=== PATIENT | male | born 1935 | race Caucasian/White ===

== ENCOUNTER → 2017-10-28 06:37 | Outpatient (CLI) | payer MEDICARE, SELFPAY ==
[2017-10-28 08:49] LABS: Alanine Aminotransferase 31 U/L (12-78); Albumin Level 3.8 gm/dL (3.4-5.0); Albumin/Globulin Ratio 1.8 (1.1-1.8); Alkaline Phosphatase 68 U/L (46-116); Anion Gap 8.7 mEq/L (5-15); Aspartate Amino Transferase 15 U/L (15-37); Bilirubin,Total 0.5 mg/dL (0.2-1.0); Blood Urea Nitrogen 18 mg/dL (7-18); Calcium 8.8 mg/dL (8.5-10.1); Carbon Dioxide 32 mmol/L (21.0-32.0); Chloride 104 mmol/L (98-107); Chol/HDL Ratio 3.5 (1-3.5); Cholesterol 144 mg/dL (140-200); Creatinine,Serum 0.89 mg/dL (0.70-1.30); Estimated Glomerular Filt Rate 82 ml/min (>60); GFR (African American) 99 ML/MIN (>60); Globulin 2.1 gm/dl (1.3-3.2); Glucose 91 mg/dL (74-106); HDL Cholesterol 41 mg/dL (27-67); LDL Cholesterol 93 mg/dL (0-130); Potassium 3.7 mmoL/L (3.5-5.1); Sodium 141 mmol/L (136-145); Thyroid Stimulating Hormone 1.04 uIU/ml (0.358-3.740); Total Protein,Serum 5.9 gm/dL (6.4-8.2); Triglycerides 52 mg/dL (30-200); VLDL Cholesterol 10 mg/dL (0-40)
[2017-10-29 10:16] LABS: Microalbumin, Urine 7.7 ug/mL (Not Estab.)
== END ==
PROVIDERS: PCP Family Medicine; Visit Provider Family Medicine
DX: I10 Essential (primary) hypertension (principal); Z12.5 Encounter for screening for malignant neoplasm of prostate; E78.2 Mixed hyperlipidemia
CPT/HCPCS: 36415; 80053; 80061; 82043; 84443; G0103

== ENCOUNTER → 2018-02-03 11:25 | Outpatient (CLI) | payer MEDICARE, SELFPAY | PROVIDERS: PCP Family Medicine; Visit Provider Surgery | DX: Z01.818 Encounter for other preprocedural examination (principal); K59.00 Constipation, unspecified | CPT/HCPCS: 93005 ==

== ENCOUNTER → 2018-02-24 07:03 | Outpatient (CLI) | payer MEDICARE, SELFPAY ==
[2018-02-24 08:41] LABS: Alanine Aminotransferase 28 U/L (12-78); Albumin/Globulin Ratio 1.6 (1.1-1.8); Alkaline Phosphatase 69 U/L (46-116); Anion Gap 7.5 mEq/L (5-15); Aspartate Amino Transferase 25 U/L (15-37); Bilirubin,Total 0.6 mg/dL (0.2-1.0); Blood Urea Nitrogen 15 mg/dL (7-18); Calcium 9.9 mg/dL (8.5-10.1); Carbon Dioxide 35 mmol/L (21.0-32.0); Chloride 103 mmol/L (98-107); Creatinine,Serum 0.93 mg/dL (0.70-1.30); Estimated Glomerular Filt Rate 78 ml/min (>60); GFR (African American) 94 ML/MIN (>60); Globulin 2.5 gm/dl (1.3-3.2); Glucose 107 mg/dL (74-106); Potassium 4.5 mmoL/L (3.5-5.1); Prostate Specific Ag, Diagnost 16.36 ng/mL (0.0-4.0); Sodium 141 mmol/L (136-145); Total Protein,Serum 6.5 gm/dL (6.4-8.2)
== END ==
PROVIDERS: Visit Provider Family Medicine
DX: Z12.5 Encounter for screening for malignant neoplasm of prostate (principal); I10 Essential (primary) hypertension; R97.20 Elevated prostate specific antigen [PSA]
CPT/HCPCS: 36415; 80053; 84153

== ENCOUNTER → 2018-03-04 09:50 | Outpatient (CLI) | payer MEDICARE, SELFPAY ==
--- NOTE | 2018-03-04 09:57 | XR_ITS ---
XR shoulder LT min 2V HISTORY: Left shoulder pain ITS.REASON: ARTHROPATHY LT SHOULDER ORDERING PHYSICIAN: Joselito Vincent MD PATIENT AGE: 82 years Comparison: None FINDINGS: There are osteoarthritic changes at the acromioclavicular joint with mild bony spurring. Minimal osteoarthritic change of the glenohumeral joint. There is mild subacromial stenosis. No fracture or dislocation. No lytic or blastic change. 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
== END ==
PROVIDERS: PCP Family Medicine; Visit Provider Family Medicine
DX: M19.012 Primary osteoarthritis, left shoulder (principal)
CPT/HCPCS: 73030

== ENCOUNTER → 2018-11-18 07:22 | Outpatient (CLI) | payer MEDICARE, SELFPAY ==
[2018-11-18 08:34] LABS: Basophils % 0.5 % (0.1-2.0); Eosinophils # 0.2 K/mm3 (0.0-0.4); Eosinophils % 2.3 % (0.1-12.0); Hematocrit 47.9 % (42.0-52.0); Hemoglobin 15.7 g/dL (14.1-18.0); Lymphocytes # 2.2 K/mm3 (0.7-4.5); Lymphocytes % 32.2 % (10-50); Mean Corpuscular HGB Conc 32.7 g/dL (31.8-35.4); Mean Corpuscular Hemoglobin 31.1 pg (27.0-31.2); Mean Corpuscular Volume 95.1 fl (80-94); Mean Platelet Volume 7.4 fl (7.4-10.4); Monocytes # 0.5 K/mm3 (0.1-1.0); Neutrophils % 58.1 % (37.0-80.0); Platelet Count 256 K/mm3 (142-424); Red Blood Count 5.03 M/mm3 (4.60-6.20); Red Cell Distribution Width 13.8 % (11.5-17.5); White Blood Count 6.9 K/mm3 (4.8-10.8)
[2018-11-18 09:23] LABS: Alanine Aminotransferase 33 U/L (12-78); Albumin/Globulin Ratio 1.6 (1.1-1.8); Alkaline Phosphatase 68 U/L (46-116); Anion Gap 9.9 mEq/L (5-15); Aspartate Amino Transferase 16 U/L (15-37); Bilirubin,Total 0.6 mg/dL (0.2-1.0); Blood Urea Nitrogen 18 mg/dL (7-18); Calcium 9.3 mg/dL (8.5-10.1); Carbon Dioxide 31 mmol/L (21.0-32.0); Chloride 105 mmol/L (98-107); Cholesterol 164 mg/dL (140-200); Creatinine,Serum 1.05 mg/dL (0.70-1.30); Estimated Glomerular Filt Rate 67 ml/min (>60); GFR (African American) 81 ML/MIN (>60); Globulin 2.5 gm/dl (1.3-3.2); Glucose 95 mg/dL (74-106); HDL Cholesterol 41 mg/dL (27-67); LDL Cholesterol 103 mg/dL (0-130); Potassium 3.9 mmoL/L (3.5-5.1); Prostate Specific Ag Screen 16.1 ng/mL (0.0-4.0); Sodium 142 mmol/L (136-145); Thyroid Stimulating Hormone 1.75 uIU/ml (0.358-3.740); Total Protein,Serum 6.5 gm/dL (6.4-8.2); Triglycerides 100 mg/dL (30-200); VLDL Cholesterol 20 mg/dL (0-40)
[2018-11-19 10:22] LABS: Creatinine, Urine 100.4 mg/dL (Not Estab.); Microalbumin, Urine 21.7 ug/mL (Not Estab.)
== END ==
PROVIDERS: Visit Provider Family Medicine
DX: I10 Essential (primary) hypertension (principal); E78.2 Mixed hyperlipidemia; Z12.5 Encounter for screening for malignant neoplasm of prostate
CPT/HCPCS: 36415; 80053; 80061; 82043; 82570; 84443; 85025; G0103

== ENCOUNTER → 2019-01-06 12:05 | Outpatient (CLI) | payer MEDICARE, SELFPAY ==
--- NOTE | 2019-01-06 12:10 | XR_ITS ---
XR KUB HISTORY: Right renal and distal right ureteral calculus seen on recent CT scan abdomen pelvis 12/28/2018 ITS.REASON: kidney stones ORDERING PHYSICIAN: Adrián Meredith MD PATIENT AGE: 83 years COMPARISON: CT scan abdomen and pelvis with IV and oral contrast 12/28/2018 FINDINGS: The bowel gas pattern is unremarkable. No obvious obstruction.. The somewhat oval calculus is seen overlying the midpole right kidney basely unchanged in size and location from the previous CT scan. There is a question a small calculus projecting over the inferior aspect of the right SI joint which could be the distal ureteral calculus seen on the CT scan. There are no suspicious calcifications lower in the pelvis. Multilevel degenerative changes of lumbar spine are noted. . IMPRESSION: Stable right renal calculus,questionable distal right ureteral calculus
== END ==
PROVIDERS: PCP Family Medicine; Visit Provider Urology
DX: N20.0 Calculus of kidney (principal)
CPT/HCPCS: 74018

== ENCOUNTER → 2019-11-16 06:58 | Outpatient (CLI) | payer MEDICARE, SELFPAY ==
[2019-11-16 07:09] LABS: MANUAL DIFFERENTIAL MANUAL DIFFERENTIAL (MANUAL DIFF)
[2019-11-16 07:34] LABS: Basophils % 0.5 % (0.1-2.0); Eosinophils # 0.2 K/mm3 (0.0-0.4); Eosinophils % 1.9 % (0.1-12.0); Hematocrit 47.3 % (42.0-52.0); Hemoglobin 14.9 g/dL (14.1-18.0); Lymphocytes # 2.6 K/mm3 (0.7-4.5); Lymphocytes % 31.1 % (10-50); Mean Corpuscular HGB Conc 31.6 g/dL (31.8-35.4); Mean Corpuscular Hemoglobin 30.1 pg (27.0-31.2); Mean Corpuscular Volume 95.3 fl (80-94); Monocytes # 0.5 K/mm3 (0.1-1.0); Monocytes % 6.6 % (1.7-9.3); Platelet Count 287 K/mm3 (142-424); Red Blood Count 4.96 M/mm3 (4.60-6.20); Red Cell Distribution Width 13.6 % (11.5-17.5); White Blood Count 8.3 K/mm3 (4.8-10.8)
[2019-11-16 08:06] LABS: Eosinophils % 3 % (0-3); Lymphocytes % 37 % (10-50); Monocytes % 6 % (2-9); Neutrophils % 54 % (42-76); Total Cells Counted 100
[2019-11-16 08:07] LABS: Platelet Estimate Normal; RBC Morphology Normal
[2019-11-16 09:01] LABS: Alanine Aminotransferase 36 U/L (12-78); Albumin Level 3.7 gm/dL (3.4-5.0); Albumin/Globulin Ratio 1.5 (1.1-1.8); Alkaline Phosphatase 70 U/L (46-116); Anion Gap 12.9 mEq/L (5-15); Aspartate Amino Transferase 22 U/L (15-37); Bilirubin,Total 0.6 mg/dL (0.2-1.0); Blood Urea Nitrogen 20 mg/dL (7-18); Calcium 9.2 mg/dL (8.5-10.1); Carbon Dioxide 31 mmol/L (21.0-32.0); Chloride 110 mmol/L (98-107); Chol/HDL Ratio 3.2 (1-3.5); Cholesterol 142 mg/dL (140-200); Creatinine,Serum 1.07 mg/dL (0.70-1.30); Estimated Glomerular Filt Rate 66 ml/min (>60); GFR (African American) 79 ML/MIN (>60); Globulin 2.4 gm/dl (1.3-3.2); Glucose 93 mg/dL (74-106); HDL Cholesterol 44 mg/dL (27-67); LDL Cholesterol 86 mg/dL (0-130); Potassium 3.9 mmoL/L (3.5-5.1); Prostate Specific Ag, Diagnost 15.71 ng/mL (0.0-4.0); Total Protein,Serum 6.1 gm/dL (6.4-8.2); Triglycerides 59 mg/dL (30-200); VLDL Cholesterol 12 mg/dL (0-40)
[2019-11-16 09:04] LABS: Sodium 150 mmol/L (136-145)
[2019-11-17 14:09] LABS: Creatinine, Urine 134.6 mg/dL (Not Estab.); Microalbumin, Urine 323.4 ug/mL (Not Estab.)
== END ==
PROVIDERS: Visit Provider Family Medicine
DX: I10 Essential (primary) hypertension (principal); E78.2 Mixed hyperlipidemia; N40.1 Benign prostatic hyperplasia with lower urinary tract symptoms
CPT/HCPCS: 36415; 80053; 80061; 82043; 82570; 84153; 84443; 85007; 85014; 85018; 85048; 85049

== ENCOUNTER → 2020-02-15 15:17 | Outpatient (CLI) | payer MEDICARE, SELFPAY | PROVIDERS: Visit Provider Urology | DX: R31.9 Hematuria, unspecified (principal) | CPT/HCPCS: 87086 ==

== ENCOUNTER → 2020-03-01 15:58 | Outpatient (CLI) | payer MEDICARE, SELFPAY | PROVIDERS: Visit Provider Urology | DX: R10.9 Unspecified abdominal pain (principal) | CPT/HCPCS: 87086 ==

== ENCOUNTER → 2020-03-04 08:48 | Outpatient (CLI) | payer MEDICARE, SELFPAY ==
[2020-03-04 11:04] LABS: Coronavirus 19 IgG Antibody Negative (Negative); Coronavirus 19 IgM Antibody Negative (Negative)
== END ==
PROVIDERS: Visit Provider Urology
DX: Z01.818 Encounter for other preprocedural examination (principal); N20.0 Calculus of kidney; R31.0 Gross hematuria
CPT/HCPCS: 36415; 86328

== ENCOUNTER 2020-03-07 08:00 | Day surgery (SDC) | payer MEDICARE, SELFPAY ==
--- NOTE | 2020-03-03 09:45 | SUR.PREOP ---
03/03/2020 @ 7722--PHONE CALL MADE TO PATIENT. PATIENT UNDERSTANDS THAT LAB WORK AND COVID TESTING NEEDS TO BE COMPLETED @ 0900 ON 03/04/2020. PATIENT UNDERSTANDS IF LAB WORK AND COVID-19 TESTS ARE NOT COMPLETED BY 12PM ON THAT DATE, THE SURGERY SCHEDULED WILL BE CANCELLED AND RESCHEDULED FOR ANOTHER TIME.
[2020-03-04 14:37] VITALS: BMI 24.7
[2020-03-07 09:23] VITALS: BP 147/61; PULSE 61; RESP 18; TEMP 36.1; O2SAT 95
[2020-03-07 10:06] VITALS: BP 144/78; PULSE 61; RESP 16; TEMP 36.4; O2SAT 95
[2020-03-07 10:17] VITALS: BP 144/78; PULSE 61; RESP 16; TEMP 36.4; O2SAT 95
--- NOTE | 2020-03-07 14:21 | P.OP_ITS ---
Date of procedure: 03/07/20 Pre-op Diagnosis:: Gross hematuria Post-op Diagnosis:: Friable prostatic mucosa and suspicious bladder findings anteriorly/distal urethral stricture Procedure performed:: Cystoscopy ureteroscopy and dilation of distal urethral stricture Surgeon:: Michael Coffman MD Anesthesia: local Estimated blood loss (mL): 0 Clinical Note:: Patient is an 84-year-old white male with recurrent gross hematuria. Recent urine culture was negative. He has been on an antibiotic. He has history of a TURP about a year ago. He presents for cystoscopic evaluation. Operative findings:: Patient taken to the operating room after informed consent was obtained. Was taken to the operating suite on the stretcher. He was prepped and draped in the standard surgical fashion and 2% lidocaine placed into the urethra and the urethra clamped for 5 minutes. After 5 minutes the clamp was removed and the flexible cystoscope introduced into the urethral meatus. There was some resistance to the passage of the scope but about 2 cm in. Scope removed and the urethra dilated with a 22, 24 and 26 Ukrainian Huron sound without difficulty. The scope then replaced and passed to the prostatic urethra which showed a long and friable prostatic urethra especially more proximal. There was some suspicious appearing bladder tissue along the anterior portion of the bladder and some calcifications associated with that tissue as well as at the bladder neck. Was some trabeculation present in the bladder but no other mucosal abnormalities. The ureteral orifices in their normal anatomic position. There was a moderate sized median lobe. Scope removed. Patient tolerated procedure well. We discussed the findings today and I will get him set up for TUR BT in the near future. Operative note:: See above Condition: stable Disposition: same day Specimens:: None Complications:: None
== END 2020-03-07 10:17 | disposition home or self-care (01) ==
LOC: OUTP 08:02
PROVIDERS: PCP Family Medicine; Visit Provider Urology
PROC: 0TJB8ZZ Inspection of Bladder, Via Natural or Artificial Opening Endoscopic (ICD-10-PCS; CPT 52000; principal; 2020-03-07 09:30)
DX: N41.8 Other inflammatory diseases of prostate (principal); N32.9 Bladder disorder, unspecified; N35.819 Other urethral stricture, male, unspecified site; Z87.448 Personal history of other diseases of urinary system; Z98.890 Other specified postprocedural states; Z79.899 Other long term (current) drug therapy; I10 Essential (primary) hypertension; M19.90 Unspecified osteoarthritis, unspecified site; Z72.0 Tobacco use; N40.1 Benign prostatic hyperplasia with lower urinary tract symptoms
CPT/HCPCS: 52281

== ENCOUNTER → 2020-03-11 09:02 | Outpatient (CLI) | payer MEDICARE, SELFPAY ==
[2020-03-11 09:42] LABS: Basophils # 0.1 K/mm3 (0-0.2); Basophils % 0.5 % (0.1-2.0); Eosinophils # 0.2 K/mm3 (0.0-0.4); Hematocrit 48.2 % (42.0-52.0); Hemoglobin 16.2 g/dL (14.1-18.0); Lymphocytes # 2.3 K/mm3 (0.7-4.5); Lymphocytes % 26.3 % (10-50); Mean Corpuscular HGB Conc 33.6 g/dL (31.8-35.4); Mean Corpuscular Hemoglobin 31.8 pg (27.0-31.2); Mean Corpuscular Volume 94.5 fl (80-94); Mean Platelet Volume 8.2 fl (7.4-10.4); Monocytes # 0.6 K/mm3 (0.1-1.0); Monocytes % 6.6 % (1.7-9.3); Neutrophils # 5.6 K/mm3 (1.8-7.8); Neutrophils % 64.6 % (37.0-80.0); Platelet Count 268 K/mm3 (142-424); Red Cell Distribution Width 13.6 % (11.5-17.5); White Blood Count 8.7 K/mm3 (4.8-10.8)
[2020-03-11 10:33] LABS: Chloride 102 mmol/L (98-107)
[2020-03-11 10:34] LABS: Potassium 4.1 mmoL/L (3.5-5.1); Sodium 141 mmol/L (136-145)
[2020-03-11 10:36] LABS: Blood Urea Nitrogen 22 mg/dl (9-20); Estimated Glomerular Filt Rate 64 ml/min (>60); GFR (African American) 77 ML/MIN (>60)
[2020-03-11 10:37] LABS: Anion Gap 12.1 mEq/L (5-15); Calcium 9.6 mg/dl (8.4-10.2); Carbon Dioxide 31 mmol/L (22.0-30.0); Glucose 102 mg/dl (74-100)
[2020-03-11 11:40] LABS: Coronavirus 19 IgG Antibody Negative (Negative); Coronavirus 19 IgM Antibody Negative (Negative)
== END ==
PROVIDERS: Visit Provider Urology
DX: Z01.818 Encounter for other preprocedural examination (principal); R31.0 Gross hematuria
CPT/HCPCS: 36415; 80048; 85025; 86328

== ENCOUNTER 2020-03-14 12:23 | Observation (INO) | payer MEDICARE, SELFPAY ==
--- NOTE | 2020-03-10 14:56 | SUR.PREOP ---
03/10/2020 @ 0300--PHONE CALL MADE TO PATIENT. PATIENT UNDERSTANDS THAT LAB WORK AND COVID TESTING NEEDS TO BE COMPLETED @ 0900 ON 03/11/2020. PATIENT UNDERSTANDS IF LAB WORK AND COVID-19 TESTS ARE NOT COMPLETED BY 12PM ON THAT DATE, THE SURGERY SCHEDULED WILL BE CANCELLED AND RESCHEDULED FOR ANOTHER TIME.
[2020-03-11 12:44] VITALS: BMI 24.7
[2020-03-14] VITALS (24 sets, daily range): BP systolic 105–144; BP diastolic 47–74; PULSE 43–75; RESP 13–18; TEMP 36.4–43; O2SAT 92–100; BMI 25.8
--- NOTE | 2020-03-14 10:35 | P.PN_ITS ---
[facility] Anesthesia Checklist - Patient Identification Patient Identification: Arm Band - Structural Data Admitted From: Home Planned Operative Procedure/s: TURBT Consent for Planned Operative Procedure(s) Verified: Yes Verified Documents: Surgical Consent, History and Physical - NPO Status Verified Time NPO: 00:00 - Additional verifications Anesthesia Reactions: No Hx Blood Transfusions: No Blood Transfusion Reaction: No - Airway Assessment C-Spine Mobility Assessed: Yes TMJ Mobility Assessed: Yes Dentition: Dentures-good fit (upper dentures glued in. Lower dentures out. Pt verbalized understanding of risks of dental damage) - Neurological Assessment Level of Consciousness: Awake, Alert - Anesthesia Plan Anesthesia Risk discussed: Yes Anesthesia Plan: Verified Anesthesia Type: General [facility] History I have reviewed the patient's past medical history: Yes Medical History: Reports:: Hyperlipidemia, Hypertension Denies:: Cancer, Diabetes Mellitus Type 1, Diabetes Mellitus Type 2, Internal Pacemaker, Lung Disease, MRSA, Seizures *Have you ever received a pneumonia vaccine?: Yes *Have you received a flu vaccine this season?: Yes Other Medical History: Reports: Arthritis, Other. Denies: Blood Transfusion Reaction Anesthesia experience/problems:: nac Other Surgeries: Yes: Colonoscopy, Hernia Repair. No: Pacemaker Amputation: No Fractures: No - *Social History Educational Level: Completed High School Smoking Status: Current every day smoker Tobacco Type: cigarettes # Packs/Day (cigarettes): 1 Alcohol Intake: never Alcohol Intake Frequency:: other Substance Use Type: denies use *Occupational Status:: retired Housing: house Household Members: spouse *Travel in the last 8 weeks: None Family Hx:: No significant family history
--- NOTE | 2020-03-14 11:40 | P.PN_ITS ---
[facility] Anesthesia Record Part I Intake, IV Amount: 1,100 Estimated blood loss (mL): 20 Urine output (mL): 0 Blood Pressure: 109/61 SaO2: 94 Pulse Rate: 52 Respiratory Rate: 16 Temperature: 97.7 F Patient is:: Drowsy, Stable Stable to PACU at:: 11:35
--- NOTE | 2020-03-14 12:17 | P.OP_ITS ---
Date of procedure: 03/14/20 Pre-op Diagnosis:: Gross hematuria secondary to prostate bleeding and suspicious lesion at the bladder neck Post-op Diagnosis:: Same Procedure performed:: Cystoscopy with transurethral resection of suspicious tissue at the bladder neck and prostate fulguration Surgeon:: Michael Coffman MD RETAIL PRESENTATION SPECIALIST:: Juliocesar Carmen Anesthesia: GETA Estimated blood loss (mL): 20 Clinical Note:: 84-year-old white male with history of BPH has persistent gross hematuria. Recent cystoscopy revealed some friability of the prostate and suspicious lesion at the anterior bladder neck. Operative findings:: Friable prostatic mucosa and bullous edematous findings at the bladder neck between 12 and 3:00 with calcifications adherent. Operative note:: Patient taken to the operating room after informed consent was obtained. Placed on the operating table in the supine position and general anesthesia administered. Preoperative antibiotics and sequential compression devices placed. He was then placed into the dorsal lithotomy position and prepped and draped in the standard surgical fashion. A 22 Rodrick passed into the urethra into the prostatic urethra which showed very friable prostatic mucosa and hyperplastic changes of the prostatic urethra the more distal than anterior. Patient has had a prior TURP in the more proximal prostatic urethra showed evidence of prior resection. The prostatic mucosa bled easily with instrumentation. Bladder was entered and examined in a systematic fashion. There was evidence of severe trabeculation. The ureteral orifices were well away from the bladder neck. There was some bullous edematous findings at the bladder neck between 12 and 3 o'clock position with calcifications adherent to the periphery of the tissue. The cystoscope removed and our resectoscope sheath passed into the bladder without difficulty. The bladder neck was resected between the 12 and 3 o'clock position and that specimen was sent off for analysis. No other suspicious findings were noted. The prostatic mucosa was then fulgurated as it bled easily with instrumentation. It was fulgurated anteriorly laterally and distally including on the floor the prostate. After fulguration was complete the scope removed and a 22 Bengali three-way catheter passed without difficulty. Three-way irrigation was set up and we will plan on moving the patient overnight for observation and three-way irrigation. Condition: stable Disposition: floor Specimens:: Bladder neck tissue Complications:: None
[2020-03-14 13:29] LABS: Basophils % 0.2 % (0.1-2.0); Eosinophils # 0.1 K/mm3 (0.0-0.4); Eosinophils % 0.8 % (0.1-12.0); Hematocrit 45.2 % (42.0-52.0); Hemoglobin 14.9 g/dL (14.1-18.0); Lymphocytes # 1.4 K/mm3 (0.7-4.5); Lymphocytes % 12.6 % (10-50); Mean Corpuscular HGB Conc 32.9 g/dL (31.8-35.4); Mean Corpuscular Volume 97.4 fl (80-94); Monocytes # 0.1 K/mm3 (0.1-1.0); Monocytes % 1.1 % (1.7-9.3); Neutrophils # 9.8 K/mm3 (1.8-7.8); Neutrophils % 85.3 % (37.0-80.0); Platelet Count 233 K/mm3 (142-424); Red Blood Count 4.64 M/mm3 (4.60-6.20); Red Cell Distribution Width 13.6 % (11.5-17.5); White Blood Count 11.4 K/mm3 (4.8-10.8)
[2020-03-14 13:34] LABS: MANUAL DIFFERENTIAL MANUAL DIFFERENTIAL (MANUAL DIFF)
--- NOTE | 2020-03-14 14:02 | P.CONPHA_ITS ---
[facility] Pharmacy VTE Monitoring - Patient Demographics Admission date: 03/14/20 Report Date: 03/14/20 Time: 14:03 Allergies/Adverse Reactions: Patient Allergies No Known Drug Allergies Allergy (Unknown, Verified 03/14/20 09:20) Height: 1.75 m Weight: 79.379 kg - VTE Risk Labs: VTE Related Lab Results Hgb 14.9 g/dL (14.1-18.0) 03/14/20 13:04 Hct 45.2 % (42.0-52.0) 03/14/20 13:04 Plt Count 233 K/mm3 (142-424) 03/14/20 13:04 VTE Score: 4 VTE Risk Level: Low Risk - Prophylaxis Types of VTE Prophylaxis: TEDS Knee High (CAYETANO HOSE ORDER PLACED)
--- NOTE | 2020-03-14 14:37 | SUR.PHASEI ---
1132: Koenig catheter anchored, Dr Coffman announced he was finished. Dr Coffman stated he was going to have CBI going throughout recovery (PACU) time. He asked to be called when time to transfer patient to post op, at that time he would decide if he was going to keep patient over night or send patient home. 1205: Called Dr Coffman to let him know the irrigation was not as red in color that had been, but now more like a dark watermelon. Dr Coffman gave orders to admit patient to Med/Surg for 24 hour observation r/t surgical post transurethral bladder neck and prostate fulguration. The order was read back to Dr Coffman for verification and confirmation. Called warehouse production worker to inform her (Negar Dimas) Dr Coffman admitting patient. Tried calling care management several times unsuccessfully. Negar got the patient a bed in room 201 and got the patient admitted. 1235: Report given to Barbie Issa RN on second floor. 1237: Patient transported via stretcher to room 204 by Rachelle Wiseman RN and Milli Stahl RN. HE was assisted to his bed from the stretcher. Patient stable, with no c/o pain upon our departure from the Med/Surg department.
--- NOTE | 2020-03-14 15:10 | P.PN_ITS ---
[facility] Anesthesia Record Part II Discharge Time: 12:35 Destination: Medical Surgical Department PACU nurse assessment reviewed?: Yes Patient Condition:: Good Anesthesia Complications:: None Swallowing reflex intact?: Yes Cyanosis?: No Blood Pressure: 128/67 Pulse Rate: 51 Temperature: 97.6 F Mental Status: Alert & Oriented Pain level:: 0 Nausea and/or vomitting:: None Intake, IV Amount: 0
--- NOTE | 2020-03-14 19:10 | PC.NURSE ---
report given to jean paul
[2020-03-14 20:39] LABS: Lymphocytes % 16 % (10-50); Monocytes % 1 % (2-9); Neutrophils % 83 % (42-76); Total Cells Counted 100
[2020-03-14 20:40] LABS: Platelet Estimate Normal; RBC Morphology Normal
[2020-03-15 04:00] VITALS: BP 113/56; PULSE 63; RESP 17; TEMP 36.9; O2SAT 91
--- NOTE | 2020-03-15 04:26 | PC.NURSE ---
A&OX4. PT HAS TOLERATED ROOM AIR WELL THROUGHOUT SHIFT. RESPIRATIONS REGULAR AND UNLABORED. INSPIRATORY WHEEZES NOTED THROUGHOUT. INTERMITTENT NONPRODUCTIVE COUGH NOTED. HEART RATE REGULAR. +2 PULSES NOTED THROUGOUT. CONTINUOUS BLADDER IRRIGATION IN PLACE. PT TOLERATING WELL. CLEAR TO LIGHT PINK URINE NOTED IN CATHETER BAG. NO KINKS NOTED TO CATHETER. STRICT I&OS IN PLACE. SCANT BLOODY DRAINAGE NOTED AT CATHETER SITE. NS INFUSING AT 75ML/HR. NO EDEMA NOTED. HAND COREROOM FOUNDRY LABORER EQUAL. AT BEDSIDE THROUGHOUT SHIFT. ACTIVE BOWEL SOUNDS IN ALL 4 QUADRANTS. SOFT AND NONTENDER. NO COMPLAINTS OF PAIN THROUGHOUT SHIFT. PT RESTING COMFORTABLY IN BED. BED IN LOWEST POSITION. CALL LIGHT WITHIN REACH. VSS. NO CONCERNS AT THIS TIME. WILL CONTINUE TO MONITOR.
[2020-03-15 05:18] VITALS: BMI 25.9
[2020-03-15 07:00] LABS: Chloride 106 mmol/L (98-107); Potassium 3.8 mmoL/L (3.5-5.1); Sodium 138 mmol/L (136-145)
[2020-03-15 07:02] LABS: Blood Urea Nitrogen 23 mg/dl (9-20); Creatinine Clearance Estimated 61 mL/min (50-200); Estimated Glomerular Filt Rate 80 ml/min (>60); GFR (African American) 97 ML/MIN (>60)
[2020-03-15 07:03] LABS: Anion Gap 7.8 mEq/L (5-15); Calcium 8.5 mg/dl (8.4-10.2); Carbon Dioxide 28 mmol/L (22.0-30.0); Glucose 120 mg/dl (74-100)
[2020-03-15 07:36] VITALS: BP 117/69; PULSE 74; RESP 19; TEMP 36.9; O2SAT 92
[2020-03-15 08:20] VITALS: PULSE 74; RESP 19; O2SAT 92
--- NOTE | 2020-03-15 09:45 | P.PN_ITS ---
Internal Medicine - PN: Subj *Date: 03/15/20 *Time: 09:45 Interval history: Patient without complaints this morning. He is sitting up in bed and has tolerated regular diet. His urine is slightly blood-tinged and has been off of continuous bladder irrigation for about 3 hours. He is status post resection of some abnormal tissue at the bladder neck and prostate fulguration yesterday. Exam Vital signs and Labs for Last 24 Hours: Temp Pulse Resp BP Pulse Ox 98.5 F 74 19 117/69 92 L 03/15/20 07:36 03/15/20 08:20 03/15/20 08:20 03/15/20 07:36 03/15/20 08:20 Laboratory Results - last 24 hr 03/14/20 13:04: WBC 11.4 H, RBC 4.64, Hgb 14.9, Hct 45.2, MCV 97.4 H, MCH 32.0 H , MCHC 32.9, RDW 13.6, Plt Count 233, MPV 8.0, Neut % (Auto) 85.3 H, Lymph % (Auto) 12.6, Henderson % (Auto) 1.1 L, Eos % (Auto) 0.8, Baso % (Auto) 0.2, Neut # (Auto) 9.8 H, Lymph # (Auto) 1.4, Henderson # (Auto) 0.1, Eos # (Auto) 0.1, Baso # (Auto) 0.0, Total Counted 100, Neutrophils % (Manual) 83 H, Lymphocytes % (Manual) 16, Monocytes % (Manual) 1 L, Platelet Estimate Normal, RBC Morphology Normal 03/15/20 06:20: Sodium 138, Potassium 3.8, Chloride 106, Carbon Dioxide 28, Anion Gap 7.8, BUN 23 H, Creatinine 0.90, Estimated Creat Clear 61, Estimated GFR 80, Est GFR ( Amer) 97, Glucose 120 H, Calcium 8.5 I & O for Last 24 hours: Intake & Output 03/12/20 03/13/20 03/14/20 03/15/20 23:59 23:59 23:59 23:59 Intake Total 3445 / 4342 2557 / 2557 Output Total 2024 75 / 75 Balance 1420 / 2317 2482 / 2482 Weight 79.379 kg 79.379 kg Narrative: Well-nourished white male in no apparent distress Pupils equal round reactive to light Head is normocephalic Neck is symmetric Normal respiratory effort Abdomen soft nondistended Alert oriented x3 Assessment and Plan (1) Gross hematuria Current visit: Yes Status: Acute Category: Medical Code(s): R31.0 - Gross hematuria Postop day 1 status post TUR of bladder neck tissue and prostate fulguration. His urine is blood-tinged this morning off of continuous bladder irrigation and will discharged home with his Koenig catheter. We discussed restricted activity for couple of weeks and he will return to the office in 3 days for his Koenig catheter removal. Prescriptions for cefdinir and finasteride given at discharge.
== END 2020-03-15 10:55 | disposition home or self-care (01) ==
LOC: 2ND 12:25
PROVIDERS: Admitting Provider Urology; PCP Family Medicine; Visit Provider Urology
PROC: 0TBB8ZZ Excision of Bladder, Via Natural or Artificial Opening Endoscopic (ICD-10-PCS; CPT 52500; principal; 2020-03-14 11:00)
DX: R31.0 Gross hematuria (principal); N40.1 Benign prostatic hyperplasia with lower urinary tract symptoms; I10 Essential (primary) hypertension; Z72.0 Tobacco use; Z79.899 Other long term (current) drug therapy
CPT/HCPCS: 52500; 36415; 80048; 85007; 85025; 88305; 88307; 96374; G0378; J2405

== ENCOUNTER → 2021-09-19 08:57 | Outpatient (CLI) | payer MEDICARE, SELFPAY | PROVIDERS: Visit Provider Surgery | DX: Z01.812 Encounter for preprocedural laboratory examination (principal); Z11.52 Encounter for screening for COVID-19; Z12.11 Encounter for screening for malignant neoplasm of colon | CPT/HCPCS: C9803; U0003; U0005 ==

== ENCOUNTER 2021-09-21 08:07 | Day surgery (SDC) | payer MEDICARE, SELFPAY ==
[2021-09-19 14:28] VITALS: BMI 24.3
[2021-09-21 08:32] VITALS: BP 117/74; PULSE 77; RESP 16; TEMP 36.8; O2SAT 94
[2021-09-21 09:23] VITALS: O2SAT 94
--- NOTE | 2021-09-21 09:29 | HMH.ANESCL ---
[facility] Anesthesia Checklist - Structural Data Admitted From: Home Planned Operative Procedure/s: colonoscopy Consent for Planned Operative Procedure(s) Verified: Yes - Additional verifications Anesthesia Reactions: No Hx Blood Transfusions: No Blood Transfusion Reaction: No - Airway Assessment C-Spine Mobility Assessed: Yes TMJ Mobility Assessed: Yes Dentition: Good Dentition - Neurological Assessment Level of Consciousness: Awake, Alert, Appropriate - Anesthesia Plan Anesthesia Risk discussed: Yes Anesthesia Plan: Verified ASA Class: II Anesthesia Type: MAC [facility] History I have reviewed the patient's past medical history: Yes Medical History: Reports:: Hyperlipidemia, Hypertension Denies:: Cancer, Diabetes Mellitus Type 1, Diabetes Mellitus Type 2, Internal Pacemaker, Lung Disease, MRSA, Seizures *Have you ever received a pneumonia vaccine?: Yes *Have you received a flu vaccine this season?: Yes Other Medical History: Reports: Arthritis, Other. Denies: Blood Transfusion Reaction Anesthesia experience/problems:: none Laterality Cases: Bilateral: Cataract Other Surgeries: Yes: No Previous Surgery, Colonoscopy, Hernia Repair. No: Pacemaker Amputation: No Fractures: No - *Social History Last grade of school completed: High school graduate Smoking Status: Current every day smoker Tobacco Type: cigarettes # Packs/Day (cigarettes): 1 Alcohol Intake: never Alcohol Intake Frequency:: other Substance Use Type: denies use *Occupational Status:: retired Housing: house Household Members: spouse *Travel in the last 8 weeks: None Family Hx:: Non-contributory
--- NOTE | 2021-09-21 09:54 | P.PCN_ITS ---
- Procedure: Date: 09/21/21 Patient Date of :: 1935 Procedure Performed:: Colonoscopy with polypectomy Indications:: History of colon polyps Change in bowel habits Performing Provider:: Joel Sibley MD Referring Provider:: . Sedation:: Monitored anesthesia care Procedure:: After informed consent was obtained the patient was taken to the endoscopy suite. Sedation ensued after the patient was transferred to the left lateral decubitus position. Pulse, blood pressure, and oxygen saturation were monitored throughout the procedure. Digital rectal exam revealed no significant abnormality. The colonoscope was placed in position. The entire colon was evaluated. The colonoscope was carefully removed and the patient was transferred to recovery in stable condition. Please see findings and specimens below for detail. Findings:: Bowel preparation relatively fair Hemorrhoidal tag/cushions Enlarged smooth/firm prostate Fairly significant tortuosity Scattered diverticulosis (worse in sigmoid) Adjacent sessile polyps at 50 cm Specimens:: Adjacent sessile polyps at 50 cm Recommendations:: Follow-up pathology. Discussion with regard to repeat colonoscopy is pending pathology. Barium enema in near future secondary to change in bowel habits and no defi nitive anomaly noted on colonoscopy. Complications:: No immediate Estimated blood obtained (mL): 1
[2021-09-21 09:55] VITALS: BP 100/53; PULSE 56; RESP 14; TEMP 36.7; O2SAT 96
[2021-09-21 10:05] VITALS: BP 95/56; PULSE 50; RESP 14; O2SAT 98
[2021-09-21 10:15] VITALS: BP 99/60; PULSE 60; RESP 16; O2SAT 94
[2021-09-21 10:25] VITALS: BP 101/65; PULSE 58; RESP 16; O2SAT 94
== END 2021-09-21 10:28 | disposition home or self-care (01) ==
LOC: OUTP 08:09
PROVIDERS: PCP Family Medicine; Visit Provider Surgery
PROC: 0DJD8ZZ Inspection of Lower Intestinal Tract, Via Natural or Artificial Opening Endoscopic (ICD-10-PCS; principal; 2021-09-21 09:30)
DX: Z12.11 Encounter for screening for malignant neoplasm of colon (principal); Z86.010 Personal history of colon polyps; K64.0 First degree hemorrhoids; N40.0 Benign prostatic hyperplasia without lower urinary tract symptoms; K56.2 Volvulus; K57.32 Diverticulitis of large intestine without perforation or abscess without bleeding; K63.5 Polyp of colon; E78.5 Hyperlipidemia, unspecified; I10 Essential (primary) hypertension; M19.90 Unspecified osteoarthritis, unspecified site; Z79.899 Other long term (current) drug therapy; Z72.0 Tobacco use
CPT/HCPCS: 45380; 88305

== ENCOUNTER → 2021-11-22 07:29 | Outpatient (CLI) | payer MEDICARE, SELFPAY ==
--- NOTE | 2021-11-22 07:29 | FL_ITS ---
FINAL REPORT CLINICAL HISTORY: anemia, constipation fluoro time: 2:16 FINDINGS: BARIUM ENEMA HISTORY: Constipation, anemia. PROCEDURE: Barium contrast was instilled into the patient's colon via a rectal catheter using gravity drip. Spot and overhead films were performed. A total of 31 images were saved. FINDINGS: There are a few scattered diverticuli noted in the sigmoid and left colon. There are no constricting or obstructing lesions identified to the level of the cecum. There is reflux of contrast seen into small bowel on the post evacuation image. Fluoroscopy time: 2 minutes 16 seconds. IMPRESSION: Left and sigmoid colon diverticulosis. No constricting or obstructing lesions identified to the level of the cecum. Reviewed, Interpreted and Dictated by Vinod Segundo III, MD Transcribed by Dunia Uriostegui PA-C Authenticated by Vinod Segundo III, MD on 11/22/2021 12:03:43 PM [facility]
== END ==
PROVIDERS: PCP Family Medicine; Visit Provider Surgery
DX: R10.9 Unspecified abdominal pain (principal)
CPT/HCPCS: 74270

== ENCOUNTER → 2021-12-05 07:14 | Outpatient (CLI) | payer MEDICARE, SELFPAY ==
--- NOTE | 2021-12-05 07:29 | US_ITS ---
FINAL REPORT CLINICAL HISTORY: RUQ pain FINDINGS: Sonographic images of the right upper quadrant were obtained. This exam was technically difficult secondary to patient body habitus. The pancreas is partially obscured.The liver has an unremarkable appearance. There is a small amount of sludge in the gallbladder without evidence of gallstones. The gallbladder wall is borderline at 3 mm. There is no evidence of biliary ductal dilatation.The common duct measures 2 mm. Limited images of the right kidney are unremarkable. IMPRESSION: Borderline gallbladder wall thickness with a small amount of sludge within the gallbladder. No evidence of gallstones. Reviewed, Interpreted and Dictated by Vinod Segundo III, MD Transcribed by Lesli Wright Authenticated by Vinod Segundo III, MD on 12/05/2021 10:45:[address] [facility]
[2021-12-05 09:19] LABS: Alanine Aminotransferase 28 U/L (12-78); Alkaline Phosphatase 73 U/L (38-126); Aspartate Amino Transferase 33 U/L (17-59); Bilirubin,Direct 0.2 mg/dl (0.0-0.4); Bilirubin,Indirect 0.7 mg/dL (0.0-0.9); Bilirubin,Total 0.9 mg/dl (0.2-1.3); Bilirubin,Unconjugated 0.7 mg/dL (0.0-1.1)
[2021-12-05 09:20] LABS: Albumin Level 4.2 g/dl (3.5-5.0); Total Protein,Serum 6.4 g/dl (6.3-8.2)
== END ==
PROVIDERS: PCP Family Medicine; Visit Provider Surgery
DX: R31.0 Gross hematuria (principal); R10.9 Unspecified abdominal pain
CPT/HCPCS: 36415; 76705; 80076

== ENCOUNTER → 2022-02-20 06:51 | Outpatient (CLI) | payer MEDICARE, SELFPAY ==
[2022-02-20 08:13] LABS: Alanine Aminotransferase 35 U/L (12-78); Albumin Level 3.8 g/dl (3.5-5.0); Albumin/Globulin Ratio 1.9 (1.1-1.8); Alkaline Phosphatase 74 U/L (38-126); Anion Gap 8.6 mEq/L (5-15); Aspartate Amino Transferase 35 U/L (17-59); Bilirubin,Total 0.4 mg/dl (0.2-1.3); Blood Urea Nitrogen 22 mg/dl (9-20); Calcium 9.2 mg/dl (8.4-10.2); Carbon Dioxide 35 mmol/L (22.0-30.0); Chloride 100 mmol/L (98-107); Chol/HDL Ratio 3.2 (1-3.5); Cholesterol 146 mg/dl (140-200); Estimated Glomerular Filt Rate 80 ml/min (>60); GFR (African American) 97 ML/MIN (>60); Glucose 92 mg/dl (74-100); HDL Cholesterol 46 mg/dl (40-60); Potassium 3.6 mmoL/L (3.5-5.1); Sodium 140 mmol/L (136-145); Total Protein,Serum 5.8 g/dl (6.3-8.2); Triglycerides 54 mg/dl (30-150); VLDL Cholesterol 11 mg/dL (0-40)
[2022-02-20 08:24] LABS: Direct LDL Cholesterol 82.09 mg/dL (100-129)
== END ==
PROVIDERS: PCP Family Medicine; Visit Provider Family Medicine
DX: I10 Essential (primary) hypertension (principal); E78.2 Mixed hyperlipidemia
CPT/HCPCS: 36415; 80053; 80061

== ENCOUNTER → 2022-04-24 06:51 | Outpatient (CLI) | payer MEDICARE, SELFPAY ==
--- NOTE | 2022-04-24 06:59 | ECG_ITS ---
APPROVED REPORT Exam: Resting ECG HR:66 bpm ECG Measurements Heart Rate 66 AXES KS 205 P 68 QRSd 105 QRS -6 QT 329 T 70 QTc 342 Conclusion SINUS RHYTHM POSSIBLE SEPTAL MYOCARDIAL INFARCTION , PROBABLY OLD [30 ms Q WAVE IN V1/V2] BORDERLINE ECG UNCONFIRMED REPORT Electronically signed by : Redd Craft MD 04/25/2022 21:04:20
[2022-04-24 08:20] LABS: Basophils # 0.1 K/mm3 (0-0.2); Basophils % 0.7 % (0.1-2.0); Eosinophils # 0.2 K/mm3 (0.0-0.4); Eosinophils % 1.6 % (0.1-12.0); Hematocrit 44.6 % (42.0-52.0); Hemoglobin 14.8 g/dL (14.1-18.0); Lymphocytes # 2.6 K/mm3 (0.7-4.5); Lymphocytes % 24.2 % (10-50); Mean Corpuscular HGB Conc 33.2 g/dL (31.8-35.4); Mean Corpuscular Hemoglobin 30.8 pg (27.0-31.2); Mean Corpuscular Volume 92.8 fl (80-94); Mean Platelet Volume 7.8 fl (7.4-10.4); Monocytes # 0.9 K/mm3 (0.1-1.0); Monocytes % 7.8 % (1.7-9.3); Neutrophils # 7.1 K/mm3 (1.8-7.8); Neutrophils % 65.6 % (37.0-80.0); Platelet Count 284 K/mm3 (142-424); Red Cell Distribution Width 13.3 % (11.5-17.5); White Blood Count 10.9 K/mm3 (4.8-10.8)
[2022-04-24 08:46] LABS: Alanine Aminotransferase 40 U/L (12-78); Albumin Level 3.8 g/dl (3.5-5.0); Albumin/Globulin Ratio 1.7 (1.1-1.8); Alkaline Phosphatase 77 U/L (38-126); Aspartate Amino Transferase 51 U/L (17-59); Bilirubin,Total 0.4 mg/dl (0.2-1.3); Blood Urea Nitrogen 23 mg/dl (9-20); Calcium 9.6 mg/dl (8.4-10.2); Carbon Dioxide 31 mmol/L (22.0-30.0); Chloride 101 mmol/L (98-107); Estimated Glomerular Filt Rate 63 ml/min (>60); GFR (African American) 77 ML/MIN (>60); Globulin 2.2 g/dL (1.3-3.2); Glucose 97 mg/dl (74-100); Sodium 138 mmol/L (136-145)
== END ==
PROVIDERS: PCP Family Medicine; Visit Provider Surgery
DX: K83.8 Other specified diseases of biliary tract (principal); R10.84 Generalized abdominal pain; Z01.812 Encounter for preprocedural laboratory examination; Z20.822 Contact with and (suspected) exposure to COVID-19
CPT/HCPCS: 36415; 80053; 85025; 93005; C9803; U0003; U0005

== ENCOUNTER 2022-04-26 06:02 | Day surgery (SDC) | payer MEDICARE, SELFPAY ==
[2022-04-23 13:53] VITALS: BMI 24.3
[2022-04-26] VITALS (16 sets, daily range): BP systolic 102–150; BP diastolic 59–70; PULSE 55–75; RESP 12–20; TEMP 36.1–43; O2SAT 91–99
--- NOTE | 2022-04-26 07:06 | P.PN_ITS ---
[facility] Anesthesia Checklist - Patient Identification Patient Identification: Arm Band - Structural Data Admitted From: Home Planned Operative Procedure/s: Laparoscopic Cholecystectomy Consent for Planned Operative Procedure(s) Verified: Yes Verified Documents: Surgical Consent, History and Physical - NPO Status Verified Time NPO: 00:00 - Additional verifications Anesthesia Reactions: No Hx Blood Transfusions: No Blood Transfusion Reaction: No - Airway Assessment C-Spine Mobility Assessed: Yes (mp2) TMJ Mobility Assessed: Yes Dentition: Edentulous - Neurological Assessment Level of Consciousness: Awake, Alert - Anesthesia Plan Anesthesia Risk discussed: Yes Anesthesia Plan: Verified ASA Class: II Anesthesia Type: General [facility] History I have reviewed the patient's past medical history: Yes Medical History: Reports:: Hyperlipidemia, Hypertension Denies:: Cancer, Diabetes Mellitus Type 1, Diabetes Mellitus Type 2, Internal Pacemaker, Lung Disease, MRSA, Seizures *Have you ever received a pneumonia vaccine?: Yes *Have you received a flu vaccine this season?: Yes Other Medical History: Reports: Arthritis, Other. Denies: Blood Transfusion Reaction Anesthesia experience/problems:: nac Other Surgeries: Yes: Cholecystectomy, Colonoscopy, Hernia Repair, Other. No: Pacemaker Amputation: No Fractures: No - *Social History Last grade of school completed: High school graduate Smoking Status: Current every day smoker Tobacco Type: cigarettes # Packs/Day (cigarettes): 1 Alcohol Intake: never Alcohol Intake Frequency:: other Substance Use Type: denies use *Occupational Status:: retired Housing: apartment Household Members: spouse *Travel in the last 8 weeks: None Family Hx:: Non-contributory
--- NOTE | 2022-04-26 08:07 | SUR.OPER ---
0800- pt fmaily notified of currrent status via negar zafar at this time
--- NOTE | 2022-04-26 08:29 | HMH.OPNOTE ---
Date of procedure: 04/26/22 Pre-op Diagnosis:: Gallbladder wall thickening Biliary sludge Right upper quadrant pain Post-op Diagnosis:: Chronic cholecystitis Procedure performed:: Laparoscopic cholecystectomy Surgeon:: Joel Sibley MD Anesthesia: SRUTHI Estimated blood loss (mL): 15 Operative findings:: Gallbladder distention Severe pericholecystic fat stranding Fairly severe infundibular thickening Operative note:: After informed consent was obtained, the patient was taken to the operating room and placed in the supine position. General anesthesia was induced and the abdomen was prepped and draped in a sterile fashion. After infiltration with local anesthetic an infraumbilical incision was made. A Veress needle was placed in position. The abdomen was insufflated. A 5 mm optical trocar was placed in position. Under direct visualization, a 12 mm trocar was placed in the subxiphoid position and 2 additional 5 mm trocars were placed in the right upper quadrant. The gallbladder was elevated up and over the liver margin. The tissue around the cystic duct was carefully dissected. 3 clips were placed proximally and the duct was transected with harmonic ney. Harmonic ney were then utilized to dissect the gallbladder away from the liver margin with careful attention to the control of the cystic artery. The gallbladder was placed in a retrieval bag and removed through the subxiphoid trocar site. The right upper quadrant was thoroughly irrigated. No active bleeding or bile leak was noted. Fascia at the subxiphoid trocar site was reapproximated utilizing the NeoClose device. The remaining trocars were removed. All wounds were irrigated and skin was closed with 4-0 Monocryl in a subcuticular fashion. Steri-Strips were applied. The patient's anesthetic agents were reversed and extubation was completed prior to transfer to recovery in stable condition. Condition: stable Disposition: PACU Specimens:: Gallbladder Complications:: No immediate
--- NOTE | 2022-04-26 08:56 | P.PN_ITS ---
[facility] Anesthesia Record Part I Intake, IV Amount: 900 Estimated blood loss (mL): 10 Urine output (mL): 0 Blood Pressure: 150/70 SaO2: 91 Pulse Rate: 61 Respiratory Rate: 12 Temperature: 97 F Patient is:: Drowsy, Stable Stable to PACU at:: 08:44
--- NOTE | 2022-04-26 09:48 | SUR.PHASEI ---
0930 called and gave detailed report to Derik Palumbo RN 0934 transported via stretcher to post op. vital signs stable. states pain level is 5. left in stable condition with Derik Palumbo RN at bedside.
--- NOTE | 2022-04-26 11:47 | P.PN_ITS ---
[facility] Anesthesia Record Part II Discharge Time: 09:34 Destination: Surgical Day Care (OP Surgery) PACU nurse assessment reviewed?: Yes Patient Condition:: Good Anesthesia Complications:: None Swallowing reflex intact?: Yes Cyanosis?: No Blood Pressure: 110/62 Pulse Rate: 65 Temperature: 97 F Mental Status: Alert & Oriented Pain level:: 5 Nausea and/or vomitting:: None Intake, IV Amount: 0
== END 2022-04-26 10:50 | disposition home or self-care (01) ==
LOC: OR 06:03
PROVIDERS: PCP Family Medicine; Visit Provider Surgery
PROC: 0FT44ZZ Resection of Gallbladder, Percutaneous Endoscopic Approach (ICD-10-PCS; CPT 47562; principal; 2022-04-26 07:30)
DX: K81.1 Chronic cholecystitis (principal); I10 Essential (primary) hypertension; E78.5 Hyperlipidemia, unspecified; Z72.0 Tobacco use; Z79.899 Other long term (current) drug therapy
CPT/HCPCS: 47562; 88304; 96374; J2405

== ENCOUNTER → 2022-10-23 06:53 | Outpatient (CLI) | payer MEDICARE, SELFPAY ==
[2022-10-23 08:51] LABS: Alanine Aminotransferase 22 U/L (12-78); Albumin Level 4.1 g/dl (3.5-5.0); Albumin/Globulin Ratio 1.9 (1.1-1.8); Alkaline Phosphatase 79 U/L (38-126); Anion Gap 10.5 mEq/L (5-15); Aspartate Amino Transferase 30 U/L (17-59); Bilirubin,Total 0.5 mg/dl (0.2-1.3); Blood Urea Nitrogen 24 mg/dl (9-20); Carbon Dioxide 31 mmol/L (22.0-30.0); Chloride 102 mmol/L (98-107); Estimated Glomerular Filt Rate 63 ml/min (>60); GFR (African American) 76 ML/MIN (>60); Globulin 2.2 g/dL (1.3-3.2); Glucose 97 mg/dl (74-100); Potassium 3.5 mmoL/L (3.5-5.1); Sodium 140 mmol/L (136-145); Total Protein,Serum 6.3 g/dl (6.3-8.2)
== END ==
PROVIDERS: PCP Family Medicine; Visit Provider Family Medicine
DX: I10 Essential (primary) hypertension (principal)
CPT/HCPCS: 36415; 80053

== ENCOUNTER 2023-06-28 17:33 | Emergency (ER) | payer MEDICARE, SELFPAY ==
[2023-06-28 17:50] VITALS: BP 133/69; PULSE 71; RESP 20; TEMP 36.6; O2SAT 96; BMI 25.9
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
[2023-06-28 18:10] VITALS: BP 133/69; PULSE 71; RESP 20; TEMP 36.6; O2SAT 96
== END 2023-06-28 18:17 | disposition home or self-care (01) ==
PROVIDERS: Emergency Provider Physician Assistant; PCP Family Medicine
DX: S51.802A Unspecified open wound of left forearm, initial encounter (principal); I10 Essential (primary) hypertension; E78.5 Hyperlipidemia, unspecified; F17.210 Nicotine dependence, cigarettes, uncomplicated; W22.8XXA Striking against or struck by other objects, initial encounter
CPT/HCPCS: 99203; 99212; G0463

== ENCOUNTER 2023-09-29 18:23 | Emergency (ER) | payer MEDICARE, SELFPAY ==
--- NOTE | 2023-09-29 19:08 | PC.NURSE ---
Patient experience car manager notified
--- NOTE | 2023-09-29 19:24 | PC.NURSE ---
Associate Teacher called by ER admissions and notified
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
[2023-09-29 20:07] VITALS: BMI 27.1
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
[2023-09-29 21:57] VITALS: BP 0/0; PULSE 0; RESP 0; TEMP -17.7; TEMP 0; O2SAT 0
== END 2023-09-29 21:58 | disposition expired ==
PROVIDERS: Emergency Provider Emergency Medicine; PCP Family Medicine
DX: I46.9 Cardiac arrest, cause unspecified (principal); S27.2XXA Traumatic hemopneumothorax, initial encounter; F17.210 Nicotine dependence, cigarettes, uncomplicated; V49.40XA Driver injured in collision with unspecified motor vehicles in traffic accident, initial encounter
CPT/HCPCS: 32556; 36556; 96361; 96365; 96375; 99291; C1751; P9016